=== PATIENT | male | born 1965 | race African-American/Black ===

== ENCOUNTER 2017-05-05 01:17 | Emergency (ER) | payer BC, OTHER ==
[2017-05-05 03:00] VITALS: BP 133/94; PULSE 92; TEMP 98.2; BMI 35.9
--- NOTE | 2017-05-05 03:31 | PDOC ---
History of Present Illness - General History Source: Patient Exam Limitations: No Limitations - History of Present Illness Initial Comments: 05/05/17 03:42 The patient is a 52 year old male with a significant PMH of HTN and diabetes ( on Metformin) who presents to the emergency department with diarrhea and body aches beginning approximately 2 days ago. The patient describes his diarrhea as watery and nonbloody, and notes having about 3 episodes an hour for the past 2 days. He notes associated abdominal discomfort with his diarrhea. The patient also notes decreased sleep and decreased PO intake over the past 2 days. He denies any sick contacts or recent travel. 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 The patient denies chest pain, shortness of breath, headache and dizziness. Denies fever, chills, nausea, vomit, diarrhea and constipation. Denies dysuria, frequency, urgency and hematuria. Allergies: NKA Past surgical history: None reported. Social history: No reported cigarette, alcohol, or drug use. PCP: None reported. <Win Silva - Last Filed: 05/05/17 03:42> - General History Source: Patient <RonaldPio fair - Last Filed: 05/05/17 06:21> - General Chief Complaint: Diarrhea Stated Complaint: JOINT PAIN,DIARRHEA Time Seen by Provider: 05/05/17 03:14 Past History <Win Silva - Last Filed: 05/05/17 03:42> - Past Medical History COPD: No Diabetes: Yes HTN: Yes Hypercholesterolemia: Yes - Suicide/Smoking/Psychosocial Hx Smoking Status: No Smoking History: Never smoked Have you smoked in the past 12 months: No Number of Cigarettes Smoked Daily: 0 Information on smoking cessation initiated: No Hx Alcohol Use: No Drug/Substance Use Hx: No Substance Use Type: None <Pio Mccord - Last Filed: 05/05/17 06:21> - Past Medical History Allergies/Adverse Reactions: Allergies Allergy/AdvReac Type Severity Reaction Status Date / Time No Known Allergies Allergy Verified 05/05/17 02:56 Home Medications: Ambulatory Orders Metformin HCl [Glucophage] 1,000 mg PO BID 05/05/17 Olmesartan Medoxomil [Benicar (Nf)] 20 mg PO DAILY 05/05/17 Ondansetron [Zofran *Odt*] 4 mg SL TID #30 od.tablet 05/05/17 Review of Systems - Review of Systems Able to Perform ROS?: Yes Comments:: 05/05/17 03:42 CONSTITUTIONAL: (+) Body aches. (+) Decreased sleep. (+) Decreased PO intake. Absent: fever, chills, diaphoresis, generalized weakness, malaise, loss of appetite HEENT: Absent: rhinorrhea, nasal congestion, throat pain, throat swelling, difficulty swallowing, mouth swelling, ear pain, eye pain, visual Changes CARDIOVASCULAR: Absent: chest pain, syncope, palpitations, irregular heart rate, lightheadedness , peripheral edema RESPIRATORY: Absent: cough, shortness of breath, dyspnea with exertion, orthopnea, wheezing, stridor, hemoptysis GASTROINTESTINAL: (+) Diarrhea. (+) Abdominal discomfort. Absent: abdominal distension, nausea, vomiting, constipation, melena, hematochezia GENITOURINARY: Absent: dysuria, frequency, urgency, hesitancy, hematuria, flank pain, genital pain MUSCULOSKELETAL: Absent: myalgia, arthralgia, joint swelling SKIN: Absent: rash, itching, pallor HEMATOLOGIC/IMMUNOLOGIC: Absent: easy bleeding, easy bruising, lymphadenopathy, frequent infections ENDOCRINE: Absent: unexplained weight gain, unexplained weight loss, heat intolerance, cold intolerance NEUROLOGIC: Absent: headache, focal weakness or paresthesias, dizziness, unsteady gait, seizure, mental status changes, bladder or bowel incontinence PSYCHIATRIC: Absent: anxiety, depression, suicidal or homicidal ideation, hallucinations. <Win Silva - Last Filed: 05/05/17 03:42> *Physical Exam - Vital Signs Last Vital Signs Temp Pulse Resp BP Pulse Ox 98.2 F 92 H 20 133/94 98 05/05/17 02:57 05/05/17 02:57 05/05/17 02:57 05/05/17 02:57 05/05/17 02:57 - Physical Exam Comments: 05/05/17 03:42 GENERAL: Well developed, well nourished. Awake and alert. No acute distress. HEENT: (+) Dry oral mucosa. Normocephalic, atraumatic. PERRLA, EOMI. No conjunctival pallor. Sclera are non- icteric. Moist mucous membranes. Oropharynx is clear. NECK: Supple. Full ROM. No JVD. Carotid pulses 2+ and symmetric, without bruits. No thyromegaly. No lymphadenopathy. CARDIOVASCULAR: Regular rate and rhythm. No murmurs, rubs, or gallops. Distal pulses are 2+ and symmetric. PULMONARY: No evidence of respiratory distress. Lungs clear to auscultation bilaterally. No wheezing, rales or rhonchi. ABDOMINAL: (+) Hyperactive bowel sounds. Soft. Non-tender. Non-distended. No rebound or guarding. No organomegaly. MUSCULOSKELETAL Normal range of motion at all joints. No bony deformities or tenderness. No CVA tenderness. EXTREMITIES: No cyanosis. No clubbing. No edema. No calf tenderness. SKIN: Warm and dry. Normal capillary refill. No rashes. No jaundice. NEUROLOGICAL: Alert, awake, appropriate. Cranial nerves 2-12 intact. No deficits to light touch and temperature in face, upper extremities and lower extremities. No motor deficits in the in face, upper extremities and lower extremities. Normoreflexic in the upper and lower extremities. Normal speech. Toes are downgoing bilaterally. Gait is normal without ataxia. PSYCHIATRIC: Cooperative. Good eye contact. Appropriate mood and affect. <Win Silva - Last Filed: 05/05/17 03:42> - Vital Signs Last Vital Signs Temp Pulse Resp BP Pulse Ox 98.2 F 92 H 20 133/94 98 05/05/17 02:57 05/05/17 02:57 05/05/17 02:57 05/05/17 02:57 05/05/17 02:57 <Pio Mccord - Last Filed: 05/05/17 06:21> ED Treatment Course - LABORATORY CBC & Chemistry Diagram: 05/05/17 03:41 05/05/17 03:41 <Pio Mccord - Last Filed: 05/05/17 06:21> *DC/Admit/Observation/Transfer - Attestations Scribe Attestion: 05/05/17 03:42 Documentation prepared by Win Silva, acting as medical underwriter for Pio Mccord DO. <Win Silva - Last Filed: 05/05/17 03:42> - Discharge Dispostion Admit: No <Pio Mccord - Last Filed: 05/05/17 06:21> Diagnosis at time of Disposition: Diarrhea Qualifiers: Diarrhea type: unspecified type Qualified Code(s): R19.7 - Diarrhea, unspecified - Discharge Dispostion Disposition: HOME Condition at time of disposition: Stable - Prescriptions Prescriptions: Ondansetron [Zofran *Odt*] 4 mg SL TID #30 od.tablet - Referrals Referrals: Aaron Zambrano MD [Staff Physician] - Dimitri Dennis DO [Staff Physician] - - Patient Instructions Printed Discharge Instructions: Diarrhea Additional Instructions: Please follow up with your doctor by Monday for re-evaluation if symptoms don't improve. Take medication as directed. Wash hands well. Drink plenty of fluids. - Post Discharge Activity Forms/Work/School Notes: Back to Work
[2017-05-05] MEDS ORDERED: SODIUM CHLORIDE 1,000 ML IV STA (03:36)
[2017-05-05 04:12] LABS: BASO % 0.3 % (0-2.0); EOS % 1.5 % (0-4.5); HEMATOCRIT 44.7 % (35.4-49); HEMOGLOBIN 14.7 GM/dL (11.7-16.9); LYMPH % 16.5 % (8-40); MCH 28.7 pg (25.7-33.7); MCHC 32.9 g/dl (32.0-35.9); MEAN CELL VOLUME 87.4 fl (80-96); MEAN PLT VOLUME 10.2 fl (7.5-11.1); MONO % 12.9 % (3.8-10.2); NEUT % 68.8 % (42.8-82.8); PLATELET COUNT 204 K/MM3 (134-434); RBC 5.12 M/mm3 (4.00-5.60); RDW 14.3 % (11.9-15.9); WHITE BLOOD COUNT 3.4 K/mm3 (4.0-10.0)
[2017-05-05 04:24] LABS: INR 1.14 (0.82-1.09); PROTHROMBIN TIME (PATIENT) 12.9 SEC (9.98-11.88)
[2017-05-05 04:41] LABS: ALBUMIN 3.8 g/dl (3.4-5.0); ANION GAP 7 (8-16); BILIRUBIN,TOTAL 0.7 mg/dL (0.2-1.0); BLOOD UREA NITROGEN 11 mg/dL (7-18); CALCIUM 8.2 mg/dL (8.5-10.1); CHLORIDE 102 mmol/L (98-107); CO2 29 mmol/L (21-32); CREATININE 0.9 mg/dL (0.7-1.3); GLUCOSE,RANDOM 141 mg/dL (74-106); SGPT/ALT 52 U/L (12-78); SODIUM 138 mmol/L (136-145); TOT PROT 7.2 g/dl (6.4-8.2)
[2017-05-05 04:42] LABS: ALK PHOS 73 U/L (45-117)
[2017-05-05 04:49] LABS: MAGNESIUM 1.5 mg/dL (1.8-2.4); POTASSIUM 3.5 mmol/L (3.5-5.1); SGOT/AST 35 U/L (15-37)
[2017-05-05 06:43] LABS: ACETONE SERUM NEGATIVE (NEGATIVE)
== END 2017-05-05 06:34 | disposition home or self-care (01) ==
LOC: JER 01:17 → EDBD 01:17 → JER 06:34
PROC: 3E0337Z Introduction of Electrolytic and Water Balance Substance into Peripheral Vein, Percutaneous Approach (ICD-10-PCS; principal; 2017-05-05)
DX: R19.7 Diarrhea, unspecified (principal); I10 Essential (primary) hypertension; E11.9 Type 2 diabetes mellitus without complications; E78.00 Pure hypercholesterolemia, unspecified
CPT/HCPCS: 36415; 80053; 82009; 83735; 85025; 85610; 99281-25; 99282-25

== ENCOUNTER 2018-01-06 19:19 | Emergency (ER) | payer BC ==
[2018-01-06 19:23] VITALS: BP 175/97; PULSE 88; TEMP 98.6; BMI 34.7
[2018-01-06] MEDS ORDERED: ALBUTEROL SO4 2.5/IPRATROPIUM 0.5 INH SOL 3 ML VIAL.NEB. NEB ONE (19:45)
--- NOTE | 2018-01-06 19:51 | PDOC ---
History of Present Illness - General Chief Complaint: Sore Throat Stated Complaint: Shortness of Breath Time Seen by Provider: 01/06/18 19:46 History Source: Patient Exam Limitations: No Limitations - History of Present Illness Initial Comments: 01/06/18 19:46 Patient came for evaluation of moist cough, head congestion, mild ear and throat pain. States suffers from seasonal pollen ALLERGIES and feels have gotten worse. 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 Denies fever, denies any ear drainage or nose drainage. Has a moist cough but nonproductive. Has tried a Claritin today with minimal resolved. Timing/Duration: reports: getting worse, this morning Severity: reports: mild, moderate Associated Symptoms: reports: cough, facial pain, fever/chills, nasal congestion , nasal drainage, sore throat, wheezing Past History - Travel Traveled outside of the country in the last 30 days: No Close contact w/someone who was outside of country & ill: No - Past Medical History Allergies/Adverse Reactions: Allergies Allergy/AdvReac Type Severity Reaction Status Date / Time No Known Allergies Allergy Verified 01/06/18 19:23 Home Medications: Ambulatory Orders Metformin HCl [Glucophage] 1,000 mg PO BID 05/05/17 Olmesartan Medoxomil [Benicar (Nf)] 20 mg PO DAILY 05/05/17 Ondansetron [Zofran *Odt*] 4 mg SL TID #30 od.tablet 05/05/17 Albuterol Sulfate Inhaler - [Ventolin HFA Inhaler -] 1 - 2 inh PO Q4H #1 inhaler 01/06/18 COPD: No Diabetes: Yes HTN: Yes Hypercholesterolemia: Yes - Suicide/Smoking/Psychosocial Hx Smoking Status: No Smoking History: Never smoked Have you smoked in the past 12 months: No Number of Cigarettes Smoked Daily: 0 Hx Alcohol Use: No Drug/Substance Use Hx: No Substance Use Type: None Review of Systems - Review of Systems Able to Perform ROS?: Yes Is the patient limited Frisian proficient: Yes Constitutional: Yes: Symptoms Reported, See HPI, Malaise. No: Fever, Loss of Appetite HEENTM: Yes: Symptoms Reported, See HPI, Nose Congestion. No: Throat Pain, Throat Swelling Respiratory: Yes: Cough (moist nonproductive) Neurological: Yes: See HPI. No: Symptoms reported, Headache All Other Systems: Reviewed and Negative *Physical Exam - Vital Signs Last Vital Signs Temp Pulse Resp BP Pulse Ox 98.6 F 88 18 175/97 H 99 01/06/18 19:21 01/06/18 19:21 01/06/18 19:21 01/06/18 19:21 01/06/18 19:21 - Physical Exam General Appearance: Yes: Nourished, Appropriately Dressed, Mild Distress HEENT: positive: TMs Normal (congested but landmarks easily visualized), Pharynx Normal (no redness, swelling or exudate. Has some posterior sinus drainage that appears to be thick clear white), Rhinorrhea, Sinus Tenderness ( mild frontal) Neck: positive: Supple, Lymphadenopathy (R), Lymphadenopathy (L) Respiratory/Chest: positive: Lungs Clear, Decreased Breath Sounds (some tightness but breath sounds clear bilaterally). negative: Wheezing Gastrointestinal/Abdominal: positive: Soft. 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 Some improvement with DuoNeb therefore will prescribe albuterol pumps and have patient continue conservative measures as there is no evidence of bacterial infection. *DC/Admit/Observation/Transfer Diagnosis at time of Disposition: Upper respiratory infection, viral - Discharge Dispostion Disposition: HOME Condition at time of disposition: Stable Decision to Admit order: No - Referrals - Patient Instructions Printed Discharge Instructions: DI for Viral Upper Respiratory Infection -- Adult Additional Instructions: Rest, drink lots of fluids: Teas, water, soups, Pedialyte Saltwater gargles Steamy showers/seem to face break up mucus Avoid contact with others until fevers and cough resolved Lots of handwashing and good hygiene Continue [id number] medications for symptomatic relief Tylenol or Motrin for fever and pain Continue albuterol nebulizers every 4-6 hours for the next 2 days then as needed for continued cough Followup with private physician in one to 2 days Return to emergency department / pediatric hospital for worsened symptoms, fevers, dehydration - Post Discharge Activity Forms/Work/School Notes: Back to Work
== END 2018-01-06 20:29 | disposition home or self-care (01) ==
LOC: JERFT 19:19
DX: J06.9 Acute upper respiratory infection, unspecified (principal); J30.2 Other seasonal allergic rhinitis; E11.9 Type 2 diabetes mellitus without complications; Z79.84 Long term (current) use of oral hypoglycemic drugs; I10 Essential (primary) hypertension; E78.00 Pure hypercholesterolemia, unspecified
CPT/HCPCS: 99281-25

== ENCOUNTER 2018-01-23 11:53 | Emergency (ER) | payer BC ==
[2018-01-23 12:17] VITALS: BP 141/86; PULSE 86; TEMP 98.8; BMI 34.7
--- NOTE | 2018-01-23 12:47 | PDOC ---
History of Present Illness - General Chief Complaint: Cold Symptoms Stated Complaint: BODYACHES, DIZZINESS Time Seen by Provider: 01/23/18 12:25 History Source: Patient Exam Limitations: No Limitations - History of Present Illness Initial Comments: 01/23/18 12:44 52 yr male history of NIDDM presents with body aches, weakness sore throat for 2 days. pt denies fever or abd pain , no diarrhea no sick contacts. no cough or travel. Severity: reports: mild Past History - Past Medical History Allergies/Adverse Reactions: Allergies Allergy/AdvReac Type Severity Reaction Status Date / Time No Known Allergies Allergy Verified 01/23/18 12:13 Home Medications: Ambulatory Orders Metformin HCl [Glucophage] 1,000 mg PO BID 05/05/17 COPD: No Diabetes: Yes HTN: Yes Hypercholesterolemia: Yes - Suicide/Smoking/Psychosocial Hx Smoking Status: No Smoking History: Never smoked Have you smoked in the past 12 months: No Number of Cigarettes Smoked Daily: 0 Hx Alcohol Use: No Drug/Substance Use Hx: No Substance Use Type: None Respiratory Specific PMHX - Complaint Specific PMHX Angina: No Bronchitis: No Pneumonia: No Pulmonary Embolus: No TB (Tuberculosis): No Review of Systems - Review of Systems Able to Perform ROS?: Yes Is the patient limited Maltese proficient: No Constitutional: Yes: Symptoms Reported HEENTM: Yes: Symptoms Reported Respiratory: Yes: Symptoms reported *Physical Exam - Vital Signs Last Vital Signs Temp Pulse Resp BP Pulse Ox 98.8 F 86 16 141/86 99 01/23/18 12:13 01/23/18 12:13 01/23/18 12:13 01/23/18 12:13 01/23/18 12:13 - Physical Exam General Appearance: Yes: Nourished, Appropriately Dressed HEENT: positive: EOMI, HERBER, Normal ENT Inspection, TMs Normal, Pharynx Normal Neck: positive: Supple. negative: Tender Respiratory/Chest: positive: Lungs Clear, Normal Breath Sounds. negative: Chest Tender Cardiovascular: positive: Regular Rhythm, Regular Rate Gastrointestinal/Abdominal: positive: Normal Bowel Sounds, Soft Musculoskeletal: positive: Normal Inspection Extremity: positive: Normal Capillary Refill, Normal Inspection, Normal Range of Motion Integumentary: positive: Normal Color, Dry, Warm Neurologic: positive: Fully Oriented, Alert, Normal Mood/Affect, Normal Response , Motor Strength 5/5 ED Treatment Course - LABORATORY CBC & Chemistry Diagram: 01/23/18 12:30 01/23/18 12:30 Medical Decision Making - Medical Decision Making 01/23/18 12:45 cc: body aches, sore throat , weakness no abd pain felt dizzy yesterday and off balance no fever will check labs, rapid strep flu *DC/Admit/Observation/Transfer Diagnosis at time of Disposition: Viral syndrome, Abnormal liver enzymes - Discharge Dispostion Disposition: HOME Condition at time of disposition: Good - Referrals Referrals: ON STAFF,NOT [Primary Care Provider] - - Patient Instructions Additional Instructions: negative strep negative flu swab your liver enzymes are slightly elevated you need to follow up with your primary care doctor for follow up and further investigation please take a multi vitamin daily drink pleanty of fluids to stay hydrated get pleanty of rest at home - Post Discharge Activity Forms/Work/School Notes: Back to Work
[2018-01-23 12:52] LABS: HEMATOCRIT 42.7 % (35.4-49); HEMOGLOBIN 14.3 GM/dL (11.7-16.9); MCH 28.9 pg (25.7-33.7); MCHC 33.6 g/dl (32.0-35.9); MEAN CELL VOLUME 86.1 fl (80-96); MEAN PLT VOLUME 9.4 fl (7.5-11.1); PLATELET COUNT 186 K/MM3 (134-434); RBC 4.97 M/mm3 (4.00-5.60); RDW 14.6 % (11.9-15.9); WHITE BLOOD COUNT 4.6 K/mm3 (4.0-10.0)
[2018-01-23 13:20] LABS: ALBUMIN 3.9 g/dl (3.4-5.0); ALK PHOS 68 U/L (45-117); ANION GAP 3 MMOL/L (8-16); BILIRUBIN,TOTAL 0.5 mg/dL (0.2-1); BLOOD UREA NITROGEN 12 mg/dL (7-18); CALCIUM 9.4 mg/dL (8.5-10.1); CHLORIDE 102 mmol/L (98-107); CO2 31 mmol/L (21-32); GLUCOSE,RANDOM 178 mg/dL (74-106); SGOT/AST 49 U/L (15-37); SGPT/ALT 74 U/L (13-61); SODIUM 136 mmol/L (136-145); TOT PROT 7.7 g/dl (6.4-8.2)
== END 2018-01-23 14:22 | disposition home or self-care (01) ==
LOC: JERFT 11:53
DX: B34.9 Viral infection, unspecified (principal); R74.8 Abnormal levels of other serum enzymes; I10 Essential (primary) hypertension; E78.00 Pure hypercholesterolemia, unspecified; E11.9 Type 2 diabetes mellitus without complications; Z79.84 Long term (current) use of oral hypoglycemic drugs
CPT/HCPCS: 36415; 80053; 85027; 87070; 87430; 87804; 99281-25

== ENCOUNTER 2018-06-18 11:45 | Emergency (ER) | payer BC, OTHER ==
[2018-06-18 11:52] VITALS: BP 140/92; PULSE 94; TEMP 98.5; BMI 35.5
--- NOTE | 2018-06-18 12:30 | PDOC ---
History of Present Illness - General Chief Complaint: Injury Stated Complaint: LT ANKLE PAIN Time Seen by Provider: 06/18/18 12:18 - History of Present Illness Initial Comments: 06/18/18 12:26 Past medical history significant for diabetes and hypertension presents for evaluation of left ankle pain. 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 Yesterday the same thing happened. Past History - Past Medical History Allergies/Adverse Reactions: Allergies Allergy/AdvReac Type Severity Reaction Status Date / Time No Known Allergies Allergy Verified 06/18/18 11:49 Home Medications: Ambulatory Orders Metformin HCl [Glucophage] 1,000 mg PO BID 05/05/17 COPD: No Diabetes: Yes (NIDM) HTN: Yes Hypercholesterolemia: Yes - Immunization History Immunization Up to Date: Yes - Suicide/Smoking/Psychosocial Hx Smoking Status: No Smoking History: Never smoked Have you smoked in the past 12 months: No Number of Cigarettes Smoked Daily: 0 Information on smoking cessation initiated: No Hx Alcohol Use: No Drug/Substance Use Hx: No Substance Use Type: None Review of Systems - Review of Systems Musculoskeletal: Yes: Joint Pain *Physical Exam - Vital Signs Last Vital Signs Temp Pulse Resp BP Pulse Ox 98.5 F 94 H 17 140/92 100 06/18/18 11:50 06/18/18 11:50 06/18/18 11:50 06/18/18 11:50 06/18/18 11:50 - Physical Exam Comments: 06/18/18 12:28 Left ankle skin color and temperature are normal range of motion is full with some tenderness about the area of the Achilles musculotendinous junction. There is no tenderness about the knee proximal fibula or along its distal coarse. No tenderness about the medial or lateral malleolus ATFL navicular base of the fifth metatarsal. Negative Lindsey's test tenderness about the Achilles musculotendinous junction. Sensorimotor deficits. Moderate Sedation - Procedure Monitoring Vital Signs: Procedure Monitoring Vital Signs Temperature 98.5 F 06/18/18 11:50 Pulse Rate 94 H 06/18/18 11:50 Respiratory Rate 17 06/18/18 11:50 Blood Pressure 140/92 06/18/18 11:50 O2 Sat by Pulse Oximetry (%) 100 06/18/18 11:50 Medical Decision Making - Medical Decision Making 06/18/18 12:29 Patient was ensured orthopedic follow-up he may weight-bear as tolerated no work for now until cleared by orthopedic. *DC/Admit/Observation/Transfer Diagnosis at time of Disposition: Strain of left Achilles tendon - Discharge Dispostion Disposition: HOME Condition at time of disposition: Stable Decision to Admit order: No - Referrals Referrals: Baljeet Horan DO [Staff Physician] - - Patient Instructions Additional Instructions: Tylenol as directed for pain. He may weight-bear as tolerated return to the emergency room for worsening symptoms and follow-up with orthopedic surgery in 1 -2 days for further evaluation and treatment options. Orthopedic surgery office is expecting her call. They have your information as we discussed. - Post Discharge Activity
== END 2018-06-18 12:49 | disposition home or self-care (01) ==
LOC: JERFT 11:45
DX: S86.012A Strain of left Achilles tendon, initial encounter (principal); V68.4XXA Person boarding or alighting a heavy transport vehicle injured in noncollision transport accident, initial encounter; Y92.488 Other paved roadways as the place of occurrence of the external cause; Y99.0 Civilian activity done for income or pay; Y93.89 Activity, other specified; I10 Essential (primary) hypertension; E78.00 Pure hypercholesterolemia, unspecified; E11.9 Type 2 diabetes mellitus without complications; Z79.84 Long term (current) use of oral hypoglycemic drugs
CPT/HCPCS: 99281-25

== ENCOUNTER 2018-12-09 15:51 | Emergency (ER) | payer BC, OTHER ==
[2018-12-09 15:57] VITALS: BP 128/80; PULSE 82; TEMP 98; BMI 35.3
--- NOTE | 2018-12-09 16:09 | PDOC ---
History of Present Illness - General Chief Complaint: Pain Stated Complaint: TINGLING SENSATION/FINGERS Time Seen by Provider: 12/09/18 16:01 History Source: Patient Past History - Past Medical History Allergies/Adverse Reactions: Allergies Allergy/AdvReac Type Severity Reaction Status Date / Time No Known Allergies Allergy Verified 12/09/18 15:57 Home Medications: Ambulatory Orders Olmesartan/Hydrochlorothiazide [Benicar Hct 20-12.5 mg Tablet] 1 each PO DAILY 10/06/13 Metformin HCl [Metformin HCl ER] 500 mg PO BID 11/29/15 Metformin HCl [Glucophage] 1,000 mg PO BID 05/05/17 COPD: Yes Diabetes: Yes HTN: Yes Hypercholesterolemia: Yes - Immunization History Immunization Up to Date: Yes - Suicide/Smoking/Psychosocial Hx Smoking Status: No Smoking History: Never smoked Have you smoked in the past 12 months: No Number of Cigarettes Smoked Daily: 0 Hx Alcohol Use: No Drug/Substance Use Hx: No Substance Use Type: None Review of Systems - Review of Systems Constitutional: No: Chills, Fever Respiratory: No: Shortness of Breath Cardiac (ROS): No: Chest Pain Integumentary: No: Sweating Neurological: Yes: Numbness, Tingling. No: Weakness, Dizziness *Physical Exam - Vital Signs Last Vital Signs Temp Pulse Resp BP Pulse Ox 98.0 F 82 18 128/80 99 12/09/18 15:54 12/09/18 15:54 12/09/18 15:54 12/09/18 15:54 12/09/18 15:54 - Physical Exam General Appearance: Yes: Appropriately Dressed. No: Apparent Distress HEENT: positive: Normal Voice Neck: positive: Supple Respiratory/Chest: negative: Respiratory Distress Extremity: positive: Normal Inspection Integumentary: positive: Dry, Warm Neurologic: positive: Fully Oriented, Alert, Normal Mood/Affect, Motor Strength 5/5. negative: Sensory Deficit Medical Decision Making - Medical Decision Making 12/09/18 16:04 53 yo M, h/o DM, HTN, here w/ numbness/tingling to L fingers intermittently x 2 days. No focal weakness, MEDINA, dizziness, visual changes, slurred speech or neck pain. No h/o similar episode. 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
== END 2018-12-09 17:00 | disposition home or self-care (01) ==
LOC: JER 15:51
DX: R20.2 Paresthesia of skin (principal); R20.0 Anesthesia of skin; I10 Essential (primary) hypertension; E11.9 Type 2 diabetes mellitus without complications; Z79.84 Long term (current) use of oral hypoglycemic drugs; E78.00 Pure hypercholesterolemia, unspecified
CPT/HCPCS: 99281-25

== ENCOUNTER 2019-04-24 09:09 | Emergency (ER) | payer BC ==
[2019-04-24 09:27] VITALS: BMI 34.7
[2019-04-24] MEDS ORDERED: SODIUM CHLORIDE 1,000 ML IV STA (10:03)
[2019-04-24 10:25] LABS: HEMATOCRIT 37.8 % (35.4-49); HEMOGLOBIN 12.7 GM/dL (11.7-16.9); MCH 29.3 pg (25.7-33.7); MCHC 33.6 g/dl (32.0-35.9); MEAN CELL VOLUME 87.3 fl (80-96); MEAN PLT VOLUME 9.6 fl (7.5-11.1); PLATELET COUNT 173 K/MM3 (134-434); RBC 4.33 M/mm3 (4.00-5.60); WHITE BLOOD COUNT 4.8 K/mm3 (4.0-10.0)
[2019-04-24 10:58] LABS: ALBUMIN 3.7 g/dl (3.4-5.0); BILIRUBIN,TOTAL 0.5 mg/dL (0.2-1); BLOOD UREA NITROGEN 11.4 mg/dL (7-18); CALCIUM 8.7 mg/dL (8.5-10.1); POTASSIUM 3.8 mmol/L (3.5-5.1); TOT PROT 6.8 g/dl (6.4-8.2)
--- NOTE | 2019-04-24 11:21 | PDOC ---
Documentation entered by Demi Lynn SCRIBE, acting as scribe for Magda Eden MD. Magda Eden MD: This documentation has been prepared by the Leah preston Adrianna, SCRIBE, under my direction and personally reviewed by me in its entirety. I confirm that the documentation accurately reflects all work, treatment, procedures, and medical decision making performed by me. History of Present Illness - General Chief Complaint: Diarrhea Stated Complaint: DIARRHEA/WEAKNESS Time Seen by Provider: 04/24/19 09:46 History Source: Patient Exam Limitations: No Limitations - History of Present Illness Initial Comments: The patient is a 54 year old male, with a significant PMH of DM and HTN, who presents to the ED for evaluation of a multitude of complaints. For 2 days, the patient has been experiencing 5-6 episodes per day of loose, watery stool without blood or mucous, and nausea. He notes he has had diffuse muscle aches, runny nose, dry cough, and left ear pain at this time as well. Patient states he has had similar symptoms about 4 times recently, the last time being last month. Unlike other episodes, patient endorses new-onset lightheadedness, that is intermittent and exacerbated with turning his head. He additionally reports one episode of sharp chest pain last night, that lasted for a few seconds and self-resolved. Patient notes he has had multiple sick contacts at work with similar symptoms. He presents today, as he is concerned about his new lightheadedness (noting he did not feel comfortable/safe to work) and chest pain. Denies fever, chills, SOB, vomit, constipation, dysuria, hematuria, recent travel. Allergies: NKA, NKDA Surgical History: None reported Social History: Denies EtOH, tobacco, or illicit drug use PCP: Dr. Gamez Is this a multiple visit Asthma Patient?: No Past History - Past Medical History Allergies/Adverse Reactions: Allergies Allergy/AdvReac Type Severity Reaction Status Date / Time No Known Allergies Allergy Verified 12/09/18 15:57 Home Medications: Ambulatory Orders Olmesartan/Hydrochlorothiazide [Benicar Hct 20-12.5 mg Tablet] 1 each PO DAILY 10/06/13 metFORMIN HCL [Metformin HCl ER] 500 mg PO BID 11/29/15 COPD: Yes Diabetes: Yes HTN: Yes Hypercholesterolemia: Yes - Immunization History Immunization Up to Date: Yes - Psycho Social/Smoking Cessation Hx Smoking Status: No Smoking History: Never smoked Have you smoked in the past 12 months: No Number of Cigarettes Smoked Daily: 0 Information on smoking cessation initiated: No Hx Alcohol Use: No Drug/Substance Use Hx: No Substance Use Type: None Review of Systems - Review of Systems Comments:: GENERAL/CONSTITUTIONAL: +Diffuse muscle aches. No fever or chills. No weakness. HEAD, EYES, EARS, NOSE AND THROAT: +Runny nose. +Left ear pain. No change in vision. No ear discharge. No sore throat. CARDIOVASCULAR: +1 episode of sharp chest pain last night, that lasted a few seconds before it self-resolved. No shortness of breath. RESPIRATORY: No cough, wheezing, or hemoptysis. GASTROINTESTINAL: +Diarrhea. +Nausea. No vomiting or constipation. GENITOURINARY: No dysuria, frequency, or change in urination. MUSCULOSKELETAL: No joint or muscle swelling or pain. No neck or back pain. SKIN: No rash NEUROLOGIC: +Lightheadedness, exacerbated with turning his head. No headache, loss of consciousness, or change in strength/sensation. ENDOCRINE: No increased thirst. No abnormal weight change. HEMATOLOGIC/LYMPHATIC: No anemia, easy bleeding, or history of blood clots. ALLERGIC/IMMUNOLOGIC: No hives or skin allergy. *Physical Exam - Vital Signs Last Vital Signs Temp Pulse Resp BP Pulse Ox 98.4 F 83 16 119/78 99 04/24/19 09:25 04/24/19 09:25 04/24/19 09:25 04/24/19 09:25 04/24/19 09:25 - Physical Exam GENERAL: The patient is in no acute distress. HEAD: Normal with no signs of trauma. EYES: PERRLA, EOMI, sclera anicteric, conjunctiva clear. ENT: +Dry mucous membranes. Ears normal without erythema, nares patent, oropharynx clear without exudates. NECK: Normal range of motion, supple without lymphadenopathy, JVD, or masses. LUNGS: Breath sounds equal, clear to auscultation bilaterally. No wheezes, and no crackles. HEART:Regular rate and rhythm, normal S1 and S2 without murmur, rub or gallop. ABDOMEN: Soft, nontender, normoactive bowel sounds. No guarding, no rebound. No masses palpable. EXTREMITIES: Normal range of motion, no edema. No clubbing or cyanosis. No erythema, or tenderness. NEUROLOGICAL: Cranial nerves II through XII grossly intact. Normal speech. No focal neurological deficits. MUSCULOSKELETAL: Back nontender to palpation, no CVA tenderness SKIN: Warm, Dry, normal turgor, no rashes or lesions noted. ED Treatment Course - LABORATORY CBC & Chemistry Diagram: 04/24/19 10:00 04/24/19 10:00 - ADDITIONAL ORDERS Additional order review: Laboratory Results 04/24/19 10:00 Sodium 138 Potassium 3.8 Chloride 104 Carbon Dioxide 29 Anion Gap 4 L BUN 11.4 Creatinine 1.0 Est GFR (CKD-EPI)AfAm 97.08 Est GFR (CKD-EPI)NonAf 83.76 Random Glucose 194 H Calcium 8.7 Total Bilirubin 0.5 AST 31 ALT 62 H Alkaline Phosphatase 71 Creatine Kinase 205 Troponin I 0.05 Total Protein 6.8 Albumin 3.7 04/24/19 10:00 RBC 4.33 MCV 87.3 MCHC 33.6 RDW 14.0 MPV 9.6 - RADIOLOGY Radiology Studies Ordered: Category Date Time Status CHEST X-RAY PORTABLE* [RAD] Stat Radiology 04/24/19 10:04 Completed Radiograph Interpretation: EXAM#: TYPE/EXAM: RESULT: [id number] RAD/CHEST X-RAY PORTABLE* Chest: Cough Impression: No acute chest pathology. Reported By: Claude Miranda MD 04/24/19 11:01 - Medications Given in the ED: ED Medications Discontinued Medications Generic Name Dose Route Start Last Admin Trade Name Freq PRN Reason Stop Dose Admin Sodium Chloride 1,000 mls @ 1,000 mls/hr 04/24/19 10:03 04/24/19 10:20 Normal Saline - IV 04/24/19 11:02 1,000 mls/hr ASDIR STA Administration Medical Decision Making - Medical Decision Making 04/24/19 11:11 Laboratory Tests 04/24/19 04/24/19 04/24/19 10:00 10:00 10:00 WBC 4.8 Hgb 12.7 Hct 37.8 Plt Count 173 BUN 11.4 Creatinine 1.0 Troponin I 0.05 Influenza A (Rapid) Negative Influenza B (Rapid) Negative EKG: Twelve-lead EKG was performed and reviewed by me. There is normal sinus rhythm with a normal rate. The axis is normal. The intervals are normal. There are no ST or T wave abnormalities. Impression: Normal twelve-lead EKG 04/24/19 11:12 CXR: nml 04/24/19 11:50 Patient states he feels better We will p.o. challenge Will discharge home Follow-up with primary care physician Return to the ER for any other concerns or complaint 04/24/19 12:41 Tolerated a sandwich and juice Feels much better Will discharge to home Pt asked to return to the ER for persistent or new symptoms Discharge - Discharge Information Problems reviewed: Yes Clinical Impression/Diagnosis: Viral syndrome Diarrhea Qualifiers: Diarrhea type: unspecified type Qualified Code(s): R19.7 - Diarrhea, unspecified Condition: Stable Disposition: HOME - Admission No - Follow up/Referral - Patient Discharge Instructions Patient Printed Discharge Instructions: Diarrhea, DI for Viral Syndrome Additional Instructions: Mr. Alamo, Thank you for coming to the ER today Return to the emergency department immediately with ANY new, persistent or worsening symptoms. Continue any medications as previously prescribed by your physician. You should follow up with your primary doctor as soon as possible regarding today's emergency department visit. Please make sure your doctor reviews the results of your emergency evaluation. Thank you for coming to the [facility] today for your care. It was a pleasure to see you today. Please note that your evaluation is INCOMPLETE until you follow-up with your doctor. - Post Discharge Activity Work/Back to School Note: Back to Work
[2019-04-24 12:30] VITALS: BP 127/89; PULSE 64; TEMP 97.8
--- NOTE | 2019-04-25 11:55 | EKG ---
Test Reason : Blood Pressure : / mmHG Vent. Rate : 060 BPM Atrial Rate : 060 BPM P-R Int : 164 ms QRS Dur : 088 ms QT Int : 402 ms P-R-T Axes : 056 -08 -08 degrees QTc Int : 402 ms NORMAL SINUS RHYTHM NORMAL ECG NO PREVIOUS ECGS AVAILABLE Confirmed by KEHINDE BARRY MD ([id number]) on 04/25/2019 11:55:39 AM Referred By: Confirmed By:KEHINDE BARRY MD
== END 2019-04-24 13:00 | disposition home or self-care (01) ==
LOC: JER 09:09 → SUPCPDRO 09:09 → JER 13:00
PROC: 3E0337Z Introduction of Electrolytic and Water Balance Substance into Peripheral Vein, Percutaneous Approach (ICD-10-PCS; principal; 2019-04-24)
DX: B34.9 Viral infection, unspecified (principal); R19.7 Diarrhea, unspecified; E11.9 Type 2 diabetes mellitus without complications; I10 Essential (primary) hypertension
CPT/HCPCS: 36415; 71045-TC-FY; 80053; 82550; 82553; 84484; 85027; 87804; 93005; 93010; 99284-25; J7030